=== PATIENT | female | born 1980 | race Caucasian/White ===

== ENCOUNTER 2021-06-20 13:30 | Emergency (ER) | payer OTHER, SELFPAY ==
[2021-06-20 13:54] VITALS: BP 123/87; PULSE 94; RESP 16; TEMP 36.4; O2SAT 100
--- NOTE | 2021-06-20 14:25 | ED.SKABFB ---
HPI - Skin/Abscess/Foreign Bdy General Chief complaint: Skin/Abscess/Foreign Body Stated complaint: rash Source: patient and RN notes reviewed Mode of arrival: ambulatory History of Present Illness HPI narrative: This is a 41-year-old female that was working in the yard and came in contact with poison betsey. She had a rash to her upper extremities and abdominal area. She bought [id number] medication with no relief. The patient denies SOB, CP, palpitation, extremity numbness, lightheadedness, dizziness, constipation, diarrhea, chills, or fever. Areas some areas of the rash appear erythematous. She does admit to excessive scratching of the affected area. Related Data Home Medications Medication Instructions Recorded Confirmed Adderall 06/20/21 Propanolol 06/20/21 Allergies Allergy/AdvReac Type Severity Reaction Status Date / Time Penicillins Allergy Difficulty Verified 06/20/21 14:06 Breathing Review of Systems Review of Systems: A 14 organ system Review of Systems was performed and pertinent positives included in the HPI, otherwise remaining ROS is negative. [facility] Family History Family History (Updated 06/20/21 @ 14:26 by RODRIGUE CardensaP-C) Other Family history non-contributory Exam Narrative: GENERAL: This is a well-nourished, well-developed patient, in no apparent distress. HEAD: normocephalic, atraumatic. EYES: PERRL. Sclera clear/white. Vision is grossly intact. EARS: External ears normal, auditory canals clear and without drainage, TMs normal without perforation. Hearing grossly intact. NOSE: External nose normal with no obvious nasal discharge, nares without redness, no rhinorrhea. THROAT: Mucous membranes moist, posterior pharynx clear. NECK: Neck supple, non-tender without lymphadenopathy, masses or thyromegaly. CARDIOVASCULAR: Regular rate and rhythm without murmurs, gallops, or rubs. RESPIRATORY: Clear to auscultation. Breath sounds equal bilaterally. No wheezes, rales, or rhonchi. GASTROINTESTINAL: Abdomen soft, non-tender, nondistended. Bowel sounds are active. No hepato-splenomegaly, or palpable masses. No guarding. SKIN: Multiple. Rash with bumps and blisters on upper extremity and abdominal area NEURO: awake, alert, and oriented to person, place and time. There were no obvious focal neurologic abnormalities. Steady gait EXTREMITIES: Normal range of motion. No edema. No calf tenderness. Negative Homans sign bilaterally. BACK: Nontender without deformity or crepitance. No flank tenderness. Course Course Emergency Course: Patient will be treated with hydroxyzine and prednisone along with hydrocortisone or calamine lotion for relief Vital Signs Vital signs: Vital Signs Temperature 97.6 F 06/20/21 13:54 Pulse Rate 94 06/20/21 13:54 Respiratory Rate 16 06/20/21 13:54 Blood Pressure 123/87 06/20/21 13:54 Pulse Oximetry 100 06/20/21 13:54 Temperature 97.6 F 06/20/21 13:54 Pulse Rate 94 06/20/21 13:54 Respiratory Rate 16 06/20/21 13:54 Blood Pressure 123/87 06/20/21 13:54 Pulse Oximetry 100 06/20/21 13:54 MDM - Skin/Abscess/Foreign Bdy Differential Diagnosis Differential diagnosis: Likely abscess of skin or subcutaneous tissue, cellulitis, insect bites and contact dermatitis Discharge Plan Discharge Clinical Impression: Contact dermatitis Qualifiers: Contact dermatitis type: irritant Contact dermatitis trigger: unspecified trigger Qualified Code(s): L24.9 - Irritant contact dermatitis, unspecified cause Patient Disposition: Home, Self-Care Condition: Stable Instructions: Antibiotic Form, Poison Betsey (ED) Additional Instructions: Wash the area with soap and cool water only. Avoid scratching when possible to prevent worsening of the condition and disruption of the skin that could lead to bacterial infection To relieve itching, place a cool washcloth or some ice over the area that itches, rather than scratching Follow up with
== END 2021-06-20 14:28 | disposition home or self-care (01) ==
PROVIDERS: Emergency Provider Nurse Practitioner
DX: L24.9 Irritant contact dermatitis, unspecified cause (principal)
CPT/HCPCS: 99203; G0463